=== PATIENT | male | born 1980 | race Caucasian/White ===

== ENCOUNTER 2017-08-31 06:59 | Emergency (ER) | payer BC ==
[2017-08-31 07:24] LABS: #Basophils 0.1 thou/uL (0.0-0.2); #Eosinphils 0.1 thou/uL (0.0-0.7); #Lymphocytes 2.1 thou/uL (1.20-3.40); #Monocytes 0.5 thou/uL (0.11-0.59); #Neutrophils 4.5 thou/uL (1.40-6.50); %Lymphocytes 28.7 % (21.0-51.0); %Monocytes 6.9 % (0.0-10.0); %Neutrophils 61.4 % (42.0-75.0); Hemoglobin 16.6 g/dL (14.0-18.0); Mean Corpuscular HGB CONC 35.4 g/dL (32.0-36.0); Mean Corpuscular Hemoglobin 32.7 pg (27.0-31.0); Mean Corpuscular Volume 92.3 fl (80.0-94.0); Mean Platelet Volume 7.1 fL (7.4-10.4); Platelet Count 287 thou/uL (130-400); RBC Distribution Width 12.1 % (11.5-14.5); Red Blood Cell (RBC) Count 5.08 mill/uL (4.70-6.10); White Blood Cell (WBC) Count 7.3 thou/uL (4.8-10.8)
[2017-08-31 07:43] LABS: ALT (SGPT) 102 U/L (8-55); AST (SGOT) 44 U/L (5-34); Alkaline Phosphatase 47 U/L (40-150); Anion Gap 12 mmol/L (10-20); BUN (Urea Nitrogen) 9 mg/dL (8.9-20.6); Bilirubin, Total 0.4 mg/dL (0.2-1.2); Calc. Creatinine Clearance 0 mL/min (70-130); Calcium 8.6 mg/dL (7.8-10.44); Carbon Dioxide 22 mmol/L (22-29); Chloride 106 mmol/L (98-107); Estimated GFR-MDRD Greater than 90; Globulin 2.8 g/dL (2.4-3.5); Glucose 100 mg/dL (70-105); Potassium 4.3 mmol/L (3.5-5.1); Protein, Total 6.8 g/dL (6.0-8.3); Sodium 136 mmol/L (136-145)
--- NOTE | 2017-08-31 09:00 | ULT ---
RIGHT UPPER QUADRANT ULTRASOUND: HISTORY: Nausea, diarrhea, abdominal pain. FINDINGS: The liver demonstrates homogeneous echotexture without focal mass or intrahepatic ductal dilatation. No gallstones, gallbladder wall thickening, or pericholecystic fluid is seen. The common duct measu res 4 mm in diameter. The tip of the pancreas is obscured by bowel gas. The visualized portions of the pancreas and right kidney are unremarkable. No free fluid is seen in the Morison's pouch. IMPRESSION: No evidence of cholelithiasis. POS: [facility]
== END 2017-08-31 10:00 | disposition home or self-care (01) ==
LOC: ERS 06:59
DX: R19.7 Diarrhea, unspecified (principal)
CPT/HCPCS: 36415; 76705; 80053; 85025

== ENCOUNTER 2020-12-02 16:05 | Emergency (ER) | payer BC ==
[2020-12-02] MEDS ORDERED: Acetaminophen 500 MG TAB ONE (16:32)
[2020-12-02] MEDS ORDERED: diphenhydrAMINE 12.5 MG/5 ML UDCUP ONE (16:32)
[2020-12-02] MEDS ORDERED: Dexamethasone 10 MG/ML VIAL ONE (16:32)
[2020-12-02] MEDS ORDERED: diphenhydrAMINE 50 MG/ML VIAL ONE (16:32)
[2020-12-02] MEDS ORDERED: Ketorolac Tromethamine 30 MG/ML VIAL ONE (16:32)
[2020-12-02] MEDS ORDERED: Metoclopramide HCl 10 MG/2 ML VIAL ONE (16:32)
== END 2020-12-02 17:34 | disposition home or self-care (01) ==
LOC: ERS 16:05
DX: H66.92 Otitis media, unspecified, left ear (principal); R51.9 Headache, unspecified
CPT/HCPCS: 96365; 96375; J1100; J1200; J1885; J2765; Q0163

== ENCOUNTER 2021-04-12 11:53 | Outpatient (CLI) | payer BC ==
[2021-04-13 18:41] LABS: SARS-CoV-2 PCR by NAA Not Detected (NotDetected)
== END 2021-04-12 11:54 | disposition home or self-care (01) ==
LOC: LABBT 11:53
PROVIDERS: ATTEND Neurological Surgery
DX: Z01.812 Encounter for preprocedural laboratory examination (principal); M54.12 Radiculopathy, cervical region; Z20.822 Contact with and (suspected) exposure to COVID-19
CPT/HCPCS: U0003; U0005

== ENCOUNTER 2021-04-17 06:30 | Day surgery (SDC) | payer BC ==
[2021-04-15 14:48] VITALS: BMI 34.3
[2021-04-17] MEDS ORDERED: ceFAZolin 2 GM/DEX 5% 100 ML BAG ONE ×2 (06:42→11:56)
[2021-04-17] MEDS ORDERED: Thrombin 5000 UNITS/5 ML VIAL ONE (07:00)
[2021-04-17] MEDS ORDERED: Ketamine 50 MG/ML (10ML VIAL) ONE (08:17)
[2021-04-17] MEDS ORDERED: Fentanyl 100 MCG/2 ML VIAL ONE ×2 (08:17→09:59)
[2021-04-17] MEDS ORDERED: Midazolam HCl 2 mg/2 ml Vial ONE (08:25)
[2021-04-17] MEDS ORDERED: PHENYLEPHRINE-NS 100 MCG/ML 10 ML SYRINGE ONE (08:27)
[2021-04-17] MEDS ORDERED: Lidocaine 1% PF 5 ML VIAL ONE (08:27)
[2021-04-17] MEDS ORDERED: ePHEDrine 50 MG/ML VIAL ONE (08:27)
[2021-04-17] MEDS ORDERED: Ondansetron PF 4 MG/2 ML Vial ONE (08:27)
[2021-04-17] MEDS ORDERED: PROPOFOL 200 MG/20 ML VIAL ONE (08:27)
[2021-04-17] MEDS ORDERED: Rocuronium Bromide 10 MG/ML (10ML VIAL) ONE (08:27)
[2021-04-17] MEDS ORDERED: Dexamethasone 20 MG/5 ML VIAL ONE (08:27)
[2021-04-17] MEDS ORDERED: SUGAMMADEX SODIUM 200 MG/2 ML VIAL ONE (09:31)
[2021-04-17] MEDS ORDERED: Labetalol HCl 100 MG/20 ML VIAL ONE (09:59)
[2021-04-17] MEDS ORDERED: Tamsulosin HCl 0.4 MG CAP ONE (10:12)
== END 2021-04-17 12:50 | disposition home or self-care (01) ==
LOC: SDC 06:30
PROVIDERS: ATTEND Neurological Surgery
PROC: 0RG10A0 Fusion of Cervical Vertebral Joint with Interbody Fusion Device, Anterior Approach, Anterior Column, Open Approach (ICD-10-PCS; principal; 2021-04-17)
DX: M54.12 Radiculopathy, cervical region (principal); M25.78 Osteophyte, vertebrae; M48.02 Spinal stenosis, cervical region
CPT/HCPCS: 76000; C1713; C1776; J1100; J2250; J2405; J2704; J3010; J3490

== ENCOUNTER 2021-08-13 08:42 | Emergency (ER) | payer BC ==
[2021-08-13 09:29] LABS: #Eosinphils 0.2 thou/uL (0.0-0.7); #Lymphocytes 2.2 thou/uL (1.20-3.40); #Monocytes 0.6 thou/uL (0.11-0.59); #Neutrophils 6.3 thou/uL (1.40-6.50); %Basophils 0.5 % (0.0-1.0); %Eosinophils 1.7 % (0.0-10.0); %Lymphocytes 23.8 % (21.0-51.0); %Monocytes 6.4 % (0.0-10.0); %Neutrophils 67.7 % (42.0-75.0); Hemoglobin 14.5 g/dL (14.0-18.0); Mean Corpuscular Hemoglobin 30.6 pg (27.0-31.0); Mean Corpuscular Volume 90.2 fL (78.0-98.0); Mean Platelet Volume 6.6 fL (7.4-10.4); Platelet Count 273 thou/uL (130-400); RBC Distribution Width 11.3 % (11.5-14.5); Red Blood Cell (RBC) Count 4.74 mill/uL (4.70-6.10); White Blood Cell (WBC) Count 9.4 thou/uL (4.8-10.8)
[2021-08-13 09:52] LABS: ALT (SGPT) 29 U/L (8-55); AST (SGOT) 16 U/L (5-34); Albumin 3.9 g/dL (3.5-5.0); Alkaline Phosphatase 52 U/L (40-110); Anion Gap 10 mmol/L (10-20); BUN (Urea Nitrogen) 11 mg/dL (8.9-20.6); Bilirubin, Total 0.4 mg/dL (0.2-1.2); Calc. Creatinine Clearance 0 mL/min (70-130); Calcium 9.8 mg/dL (7.8-10.44); Carbon Dioxide 31 mmol/L (22-29); Chloride 102 mmol/L (98-107); Globulin 3.6 g/dL (2.4-3.5); Glucose 95 mg/dL (70-105); Lipase 15 U/L (8-78); Potassium 5.2 mmol/L (3.5-5.1); Protein, Total 7.5 g/dL (6.0-8.3); Sodium 138 mmol/L (136-145)
[2021-08-13 11:58] LABS: Bilirubin Negative (Negative); Blood, Urine Negative (Negative); Clarity Clear (Clear); Glucose, Urine (Dipstick) Normal (Negative); Ketone, Urine Negative (Negative); Leukocyte Negative Leu/uL (Negative); Nitrite Negative (Negative); Protein, Urine (Dipstick) Negative (Neg-Trace); Urobilinogen Normal mg/dL (Less than 2); pH, Urine 7.5 (5.0-9.0)
[2021-08-13 12:00] LABS: Specific Gravity, Urine 1.045 (1.002-1.036)
== END 2021-08-13 11:50 | disposition home or self-care (01) ==
LOC: ERS 08:42
DX: K57.32 Diverticulitis of large intestine without perforation or abscess without bleeding (principal)
CPT/HCPCS: 74177; 80053; 81003; 83690; 85025

== ENCOUNTER 2021-12-02 13:58 | Outpatient (CLI) | payer BC ==
[2021-12-02] MEDS ORDERED: ISOVUE-370 76% 1 ML ONE (15:01)
== END 2021-12-02 13:59 | disposition home or self-care (01) ==
LOC: BICCT 13:58
PROVIDERS: ATTEND Physician Assistant Medical
DX: K57.32 Diverticulitis of large intestine without perforation or abscess without bleeding (principal); K92.1 Melena; R10.9 Unspecified abdominal pain; J98.4 Other disorders of lung; R91.8 Other nonspecific abnormal finding of lung field
CPT/HCPCS: 74177